=== PATIENT | female | born 1955 | race Caucasian/White ===

== ENCOUNTER 2021-10-23 16:01 | Observation (INO) ==
[2021-10-23] MEDS ORDERED: Ondansetron 4 MG/2 ML VIAL IVP PRN (19:51)
[2021-10-23] MEDS ORDERED: Acetaminophen 325 MG TABLET PO PRN (19:51)
[2021-10-23] MEDS ORDERED: Naloxone 0.4 MG/ML INJ IVP PRN (19:51)
[2021-10-23] MEDS ORDERED: Dextrose Gel 15 GM/37.5 ML TUBE PO PRN ×2 (20:04)
[2021-10-23] MEDS ORDERED: *HR* Dextrose 50 % in Water (Syg) 50 ML SYRINGE IVP PRN (20:04)
[2021-10-23] MEDS ORDERED: D5% in Water 1,000 ML IVC PRN (20:04)
[2021-10-24 02:03] LABS: Basophils % 0.1 %; Mean Platelet Volume 9.5 fL (9.4-12.4); Red Cell Distribution Width 20.2 % (11.5-14.5)
[2021-10-24 02:04] LABS: INR 1.2; Prothrombin Time 13.8 Seconds (9.4-12.1)
[2021-10-24 02:05] LABS: Hematocrit 27.1 % (35.3-44.9); Immature Granulocytes % 0.9 % (0-4); Immature Reticulocyte % 34.6 % (11.0-38.0); Lymphocytes # 0.9 K/mcL (0.6-4.6); Lymphocytes % 9.7 %; Mean Corpuscular HGB Conc 29.5 g/dL (31.6-35.5); Mean Corpuscular Hemoglobin 28.9 pg (28.0-33.3); Mean Corpuscular Volume 97.8 fL (83.0-100.0); Monocytes # 0.4 K/mcL (0.0-1.3); Platelet Count 320 K/mcL (140-400); Red Blood Count 2.77 M/mcL (3.82-4.97); Retculocyte # 0.17 M/mcL (0.05-0.10); Reticulocyte % 6.1 % (1.6-2.8); Segmented Neutrophils % 85.3 %; White Blood Count 9.4 K/mcL (4.3-11.1)
[2021-10-24 02:06] LABS: Activated Partial Thrombo Time 23.6 Seconds (26.0-36.0)
[2021-10-24 02:11] LABS: % Iron Saturation 8 % (15-50); Iron 31 mcg/dL (50-170); Transferrin 273 mg/dL (203-362)
[2021-10-24 02:21] LABS: Platelet Estimate Normal (Normal); Polychromasia 1+ (Not Present); Stomatocytes 1+ (Not Present)
[2021-10-24 02:24] LABS: BUN/Creatinine Ratio 39 (6-26); Blood Urea Nitrogen 14 mg/dL (8-23); Calcium 8.5 mg/dL (8.6-10.3); Carbon Dioxide 42 mEq/L (23-29); Chloride 97 mEq/L (98-107); Glucose 142 mg/dL (70-105); Magnesium 1.9 mg/dL (1.6-2.6); Osmolality,Calculated 293 (280-300); Phosphorous 2.9 mg/dL (2.7-4.5); Potassium 4.2 mEq/L (3.5-5.1); Sodium 140 mEq/L (136-145); eGFR For African Americans > 60 (> 60); eGFR For Non-African Americans > 60 (> 60)
[2021-10-24 02:52] LABS: Ferritin 19 ng/mL (10-120)
[2021-10-24 02:57] LABS: Folate 9.7 ng/mL (3.0-16.0)
[2021-10-24] MEDS ORDERED: Iron Sucrose Complex 400 MG in 0.9 % Sodium Chloride 250 ML IVPB ONE (03:27)
[2021-10-24] MEDS: Ipratropium/Albuterol Neb 3 ML IH SCH ×2 (04:32→09:27)
[2021-10-24] MEDS ORDERED: Cyanocobalamin (B-12) 1,000 MCG/ML VIAL IM ONE (07:56)
[2021-10-24] MEDS ORDERED: Chlorhexidine Rinse 15 ML MOUTHWASH MM SCH (09:00)
[2021-10-24] MEDS ORDERED: Cyanocobalamin (B-12) 1,000 MCG TABLET PO SCH (09:00)
[2021-10-24] MEDS ORDERED: Cholecalciferol (D-3) 1,000 UNIT (25MCG) TABLET PO SCH (09:00)
[2021-10-24] MEDS ORDERED: Nicotine 7 MG PATCH.TD24 TD SCH (09:00)
[2021-10-24] MEDS ORDERED: Lactobacillus 1 EACH CAP.SPRINK PO SCH (09:00)
[2021-10-24] MEDS ORDERED: levoFLOXacin 750 MG/150 ML 750 MG/150 ML BAG IVPB SCH (09:00)
[2021-10-24] MEDS ORDERED: Budesonide/Formoterol 160/4.5 1 PUFF INH IH SCH (10:00)
[2021-10-24 11:43] LABS: Influenza A PCR Negative (Negative); Influenza B PCR Negative (Negative); Resp. Syncytial Virus PCR Negative (Negative); SARS-CoV-2 by PCR (In House) Negative (Negative)
[2021-10-24] MEDS ORDERED: *HR* OxyCODONE Immed Rel 5 MG TABLET PO PRN ×3 (12:57→15:15)
[2021-10-24 13:19] VITALS: BP 112/47; PULSE 118; TEMP 97.3; O2SAT 90
[2021-10-24] MEDS ORDERED: Ipratropium/Albuterol Neb 3 ML IH PRN (15:16)
[2021-10-25] MEDS ORDERED: *HR* Enoxaparin 40 MG/0.4 ML SYRINGE SQ SCH (06:00)
== END 2021-10-24 15:48 | disposition hospice, home (50) ==
LOC: 2NENU → SUATTDRO 18:53
PROVIDERS: ADMIT Internal Medicine; ATTEND Student in an Organized Health Care Education/Training Program